=== PATIENT | male | born 1960 | race Caucasian/White ===

== ENCOUNTER 2017-07-14 17:43 | Emergency (ER) | payer MEDICARE, MEDICAID ==
[2017-07-14] MEDS ORDERED: Fluorescein 1 MG Ophth Strip EYELF ONE (17:57)
[2017-07-14] MEDS ORDERED: Tetracaine HCl/PF 0.5% 4 ML Bottle EYELF ONE (17:57)
[2017-07-14 18:00] VITALS: BP 150/83
--- NOTE | 2017-07-14 18:26 | EDM.PDOC ---
ED HPI GENERAL MEDICAL PROBLEM - General Chief Complaint: Eye Problems Stated Complaint: [id number] EYE Time Seen by Provider: 07/14/17 17:45 Source of Information: Reports: Patient History Limitations: Reports: No Limitations - History of Present Illness INITIAL COMMENTS - FREE TEXT/NARRATIVE: This 57 yo male patient reports to the ED with left eye pain. The patient reports he was doing lawn work when he hit a branch with his left eye. The patient reports after that incident he had exposure to some cut grass. The patient reports increased pain in the left eye since the time of the incident. Onset: Today Duration: Constant, Getting Worse Location: Reports: Face (left eye) Quality: Reports: Ache, Sharp Severity: Moderate Improves with: Reports: None Worsens with: Reports: None Associated Symptoms: Reports: No Other Symptoms Left Eye Pain Score (Numeric/FACES): 8 - Related Data Allergies Allergy/AdvReac Type Severity Reaction Status Date / Time No Known Allergies Allergy Verified 07/14/17 18:11 Home Meds: Home Meds Insulin Aspart [NovoLOG] 25 units SQ DAILY 07/14/17 [History] Insulin Glarg,Human.Rec.Analog [Lantus] 8 units SQ ASDIRECTED 07/14/17 [History] Past Medical History HEENT History: Reports: Impaired Vision Other HEENT History: uses cheaters Musculoskeletal History: Reports: Arthritis Endocrine/Metabolic History: Reports: Diabetes, Type I Hematologic History: Reports: Bleeding Disorder Social & Family History - Family History Family Medical History: Noncontributory - Tobacco Use Smoking Status *Q: Current Every Day Smoker Years of Tobacco use: 40 Packs/Tins Daily: 1.5 - Caffeine Use Caffeine Use: Reports: Coffee - Recreational Drug Use Recreational Drug Use: No ED ROS GENERAL - Review of Systems Review Of Systems: ROS reveals no pertinent complaints other than HPI. ED EXAM GENERAL W FULL EYE - Physical Exam Exam: See Below Exam Limited By: No Limitations General Appearance: Alert, WD/WN, Moderate Distress Eye Exam: Left Eye: Corneal Abrasion, Bilateral Eye: EOMI, Normal Inspection, PERRL Eyelids: Bilateral: Normal Appearance Conjunctiva & Sclera: Left: Injected Cornea Exam: Left: Corneal Abrasion Extraocular Movements: Bilateral: Intact Pupils: Normal Accommodation Pupillary Size: Bilateral: 3 mm Pupillary Reaction: Bilateral: Brisk Ears: Normal External Exam, Normal Canal, Hearing Grossly Normal, Normal TMs Nose: Normal Inspection, Normal Mucosa, No Blood Throat/Mouth: Normal Inspection, Normal Lips, Normal Teeth, Normal Gums, Normal Oropharynx, Normal Voice, No Airway Compromise Head: Atraumatic, Normocephalic Neck: Normal Inspection, Supple, Full Range of Motion (Male) Exam: Deferred Rectal (Males) Exam: Deferred Extremities: Normal Range of Motion Neurological: Alert, Oriented Psychiatric: Normal Affect, Normal Mood Skin Exam: Warm, Dry, Intact, Normal Color, No Rash Course - Vital Signs Last Recorded V/S: Last Vital Signs Temp 36.4 C 07/14/17 17:56 Pulse 87 07/14/17 17:56 Resp 12 07/14/17 17:56 BP 150/83 H 07/14/17 17:56 Pulse Ox 97 07/14/17 17:56 - Orders/Labs/Meds Meds: Medications Discontinued Medications Generic Name Dose Route Start Last Admin Trade Name Joseq PRN Reason Stop Dose Admin Fluorescein Sodium 1 mg 07/14/17 17:57 07/14/17 18:07 Ful-Nia EYELF 07/14/17 17:58 1 mg ONETIME ONE Administration Tetracaine HCl 1 ml 07/14/17 17:57 07/14/17 18:06 Tetracaine 0.5% Steri-Unit Marlyn EYELF 07/14/17 17:58 2 drop ASDIRECTED ONE Administration Departure - Departure Time of Disposition: 18:30 Disposition: Home, Self-Care 01 Condition: Fair Clinical Impression: Corneal abrasion Qualifiers: Encounter type: initial encounter Laterality: left Qualified Code(s): S05.02XA - Injury of conjunctiva and corneal abrasion without foreign body, left eye, initial encounter - Discharge Information Instructions: Corneal Abrasion, [id number] Forms: ED Department Discharge Care Plan Goals: The patient was advised of the examination results during the visit. The patient was given several drops of Tetracaine to numb the eye. The patient was discharged with a script for Erythromycin Ointment (0.5%) to apply a 1 cm ribbon to the left lower lid 4 times per day for 7 days. If the patient has any additional symptoms or concerns, the patient should follow-up with his primary care facility or return to the emergency department.
== END 2017-07-14 18:40 | disposition home or self-care (01) ==
LOC: DL.ED 17:43
DX: S05.02XA Injury of conjunctiva and corneal abrasion without foreign body, left eye, initial encounter (principal); H54.7 Unspecified visual loss; M19.90 Unspecified osteoarthritis, unspecified site; E10.9 Type 1 diabetes mellitus without complications; F17.210 Nicotine dependence, cigarettes, uncomplicated; Z79.4 Long term (current) use of insulin; W22.8XXA Striking against or struck by other objects, initial encounter
CPT/HCPCS: 99283; A9270